=== PATIENT | female | born 1995 | race Caucasian/White ===

== ENCOUNTER 2017-10-29 20:45 | Emergency (ER) | payer BC, OTHER ==
[~2017-10-29] VITALS: Ht 167.6 cm; Wt 108.9 kg
--- NOTE | 2017-10-29 20:59 | ED Headache ---
General Stated Complaint: HEADACHE Source: patient Exam Limitations: no limitations History of Present Illness Date Seen by Provider: Oct 29, 2017 Time Seen by Provider: 20:56 Initial Comments To ER complaint by with reports of a headache. This is bilateral in the temporal location and the back of her neck. This began on Saturday 3 days ago without preceding trauma. No history of headaches or migraines. She's been taking Excedrin which does provide her with some temporary relief. No fevers or chills. No neck pain. This began slowly and has a minor dull headache and got progressively worse over the course of the day. This was not a thunderclap headache. It did not come about with exertion. She states that she did have some left cheek numbness and drooping in the car on the way here, but the numbness persists, the drooping has resolved. Timing/Duration: other (3 days ago) Severity/Quality: constant Location: temporal Associated Symptoms: denies symptoms Allergies and Home Medications Allergies Coded Allergies: Cephalosporins (Verified Allergy, Unknown, 10/29/17) codeine (Verified Allergy, Unknown, 10/29/17) Patient Home Medication List Home Medication List Reviewed: Yes Review of Systems Constitutional: see HPI Eyes: No Symptoms Reported Ears, Nose, Mouth, Throat: no symptoms reported Respiratory: no symptoms reported Cardiovascular: no symptoms reported Genitourinary: no symptoms reported Musculoskeletal: no symptoms reported Skin: no symptoms reported Psychiatric/Neurological: No Symptoms Reported Past Oezmdxt-Szvnbx-Cknayp Hx Patient Social History Recent Foreign Travel: No Contact w/Someone Who Travel: No Physical Exam Vital Signs Vital Signs - First Documented 10/29/17 20:51 Temp 97.8 Pulse 77 Resp 18 B/P (MAP) 123/58 (79) Pulse Ox 98 Capillary Refill : General Appearance: WD/WN, no apparent distress HEENT: PERRL/EOMI, normal ENT inspection, TMs normal, other (numbness there is no facial asymmetry with smiling, no evidence of motor dysfunction. Manager Knowledge are equal. Moves all extremities with equal strength. Extraocular muscles are intact. She does report persistent numbness to the left side of her cheek) Neck: non-tender, full range of motion Respiratory: no respiratory distress, no accessory muscle use Gastrointestinal: normal bowel sounds, non tender Extremities: normal range of motion, non-tender Psychiatric: alert, oriented x 3 Crainal Nerves: normal hearing, normal speech Skin: normal color, warm/dry Comments GCS 15 alert and oriented pleasant Progress/Results/Core Measures Results/Orders My Orders Orders - RAHUL NAVARRETE APRN Urine Bedside (10/29/17 20:53) Ct Head Wo (10/29/17 20:53) Ketorolac Injection (Toradol Injection) (10/29/17 21:00) Diphenhydramine Injection (Benadryl Inje (10/29/17 21:00) Prochlorperazine Injection (Compazine In (10/29/17 21:00) Medications Given in ED Current Medications Medications Dose Ordered Sig/Adeel Route Start Time Stop Time Status Last Admin Dose Admin Diphenhydramine HCl 25 mg ONCE ONCE IM 10/29/17 21:00 10/29/17 21:01 DC 10/29/17 21:23 25 MG Ketorolac Tromethamine 60 mg ONCE ONCE IM 10/29/17 21:00 10/29/17 21:01 DC 10/29/17 21:23 60 MG Prochlorperazine Edisylate 5 mg ONCE ONCE IM 10/29/17 21:00 10/29/17 21:01 DC 10/29/17 21:23 5 MG Vital Signs/I&O 10/29/17 20:51 Temp 97.8 Pulse 77 Resp 18 B/P (MAP) 123/58 (79) Pulse Ox 98 Diagnostic Imaging Diagonstic Imaging: Xray Plain Films/CT/US/NM/MRI: chest Comments NAME: PHILIPPE SIMMONS [facility] REC#: [id number] PT STATUS: REG ER : 1995 PHYSICIAN: RAHUL NAVARRETE APRN ADMIT DATE: 10/29/17/ER Signed Date of Exam:10/29/17 CT HEAD WO PROCEDURE: CT head without contrast. TECHNIQUE: Multiple contiguous axial images were obtained through the brain without the use of intravenous contrast. INDICATION: Headache. Comparison: None available. Findings: No hyperdense hemorrhage or space-occupying mass. No hydrocephalus or midline shift. The basilar cisterns are normal. Boyd-white matter differentiation is well preserved. The mastoid air cells are clear. Paranasal sinuses are normal. No focal osseous abnormality of the calvarium. Impression: No acute intracranial process. Dictated by: Dictated on workstation # [id number] Dict: 10/29/172124 Trans: 10/29/172127 [facility] [id number] Interpreted by: MANPREET BOYER MD Electronically signed by: MANPREET BOYER MD 10/29/172127 Departure Communication (Admissions) I did discuss with her that this may be an atypical migraine given that the headache improves with Excedrin, has been present for 3 days and she has some transient neurologic symptoms including left facial numbness. Impression Primary Impression: Headache Disposition: HOME, SELF-CARE Condition: Improved Departure-Patient Inst. Decision time for Depature: 20:58 Referrals: NO,LOCAL PHYSICIAN (PCP/Family) Primary Care Physician Patient Instructions: HEADACHE Add. Discharge Instructions: 1. Return to ER for any concerns such as worsening numbness or recurrent drooping of the face. 2. Follow-up with your doctor next week Scripts Butalbital/Aspirin/Caffeine (Fiorinal 50-325-40 mg Capsule) 1 Each Capsule 1 EACH PO Q4H PRN for HEADACHE, #10 CAP Prov: RAHUL NAVARRETE APRN 10/29/17 RAHUL NAVARRETE APRN Oct 29, 2017 20:58
[2017-10-29] MEDS ORDERED: PROCHLORPERAZINE 10 MG/2ML INJ (COMPAZINE) IM ONE (21:00)
[2017-10-29] MEDS ORDERED: diphenhydrAMINE 50 MG/ML INJ (BENADRYL) IM ONE (21:00)
[2017-10-29] MEDS ORDERED: KETOROLAC 60 MG/2 ML VIAL IM ONE (21:00)
--- NOTE | 2017-10-29 21:31 | Diagnostic Imaging Report ---
PROCEDURE: CT head without contrast. TECHNIQUE: Multiple contiguous axial images were obtained through the brain without the use of intravenous contrast. INDICATION: Headache. Comparison: None available. Findings: No hyperdense hemorrhage or space-occupying mass. No hydrocephalus or midline shift. The basilar cisterns are normal. Boyd-white matter differentiation is well preserved. The mastoid air cells are clear. Paranasal sinuses are normal. No focal osseous abnormality of the calvarium. Impression: No acute intracranial process. Dictated by: Dictated on workstation # [id number]
[2017-10-29] MEDS ORDERED: BUTA1CAP17 PO (21:50)
[2017-10-29 21:53] VITALS: BP 123/58
== END 2017-10-29 21:57 | disposition home or self-care (01) ==
LOC: ER 20:49
DX: R51 Headache (principal); Z88.5 Allergy status to narcotic agent; Z88.1 Allergy status to other antibiotic agents
CPT/HCPCS: 70450; 84703; 96372